=== PATIENT | female | born 1985 | race Caucasian/White ===

== ENCOUNTER → 2017-01-18 | Outpatient (CLI) | payer BC ==
[2015-02-24 14:14] VITALS: BP 131/79
[~2017-01-18] MED LIST: CIPR500T94 PO; OXYC-323 PO; PROM25SU32 RC
--- NOTE | 2017-01-18 09:17 | RAD ---
DATE: January 18, 2017 EXAM: DIGITAL DIAGNOSTIC BILATERAL, BREAST RIGHT, RIGHT BREAST SONOGRAPHY HISTORY: Right breast lump discovered by the patient's physician. COMPARISON: July 14, 2014 This study was interpreted with the benefit of Computerized Aided Detection (CAD). BILATERAL DIAGNOSTIC MAMMOGRAPHIC FINDINGS: The breast parenchyma is heterogeneously dense. There are no dominant suspicious masses, suspicious microcalcifications or evidence of architectural distortion. There is asymmetric dense breast parenchyma within the upper-outer quadrant of the right breast which corresponds to the area of the palpable abnormality as indicated by the skin marker. This is an unchanged chronic finding. Small intramammary lymph node within the posterior central aspect of the right breast in MLO projection is stable. RIGHT BREAST SONOGRAPHY: High-resolution sonography of the upper-outer quadrant of the right breast from the 9:00 to 12:00 position was performed in the area of clinical concern. No focal sonographic abnormality is seen. IMPRESSION: Stable mammogram. No new mammographic abnormality of the right breast is seen to correspond to the palpable abnormality which appears to represent stable chronic dense asymmetric nodular breast parenchyma. No focal sonographic abnormality is seen. This is a benign finding. Therefore, with regard to any palpable abnormality, follow-up should be clinical. There are no mammographic indicators for malignancy. BI-RADS CATEGORY: 2 BENIGN FINDING RECOMMENDED FOLLOW-UP: 12M 12 MONTH FOLLOW-UP PQRS compliance statement: Patient information was entered into a reminder system with a target due date January 19, 2018 for the next mammogram. Mammography is a sensitive method for finding small breast cancers, but it does not detect them all and is not a substitute for careful clinical examination. A negative mammogram does not negate a clinically suspicious finding and should not result in delay in biopsying a clinically suspicious abnormality. "Our facility is accredited by the [employer] Mammography [employer]." The patient's breast density may affect the ability of mammography to detect breast cancer. There are 4 categories of breast density, A, B, C and D. Breast density A means that most of the breast tissue is replaced with adipose tissue and therefore is not dense. Breast density B means that the breast tissue is mildly dense and scattered. Breast density C means that the breast tissue . Breast density D means that the breast tissue is very dense. Breast densities especially C and D may decrease the sensitivity of mammography to detect breast cancer. Therefore, the patient may benefit from 3-D breast mammography (3D breast tomography) as a part of their screening mammogram. Insurance may or may not pay for this additional imaging. The patient's breast density based on today's mammogram is category C.
== END | disposition home or self-care (01) ==
LOC: US 07:38
PROVIDERS: ATTEND Obstetrics & Gynecology
DX: N63.10 Unspecified lump in the right breast, unspecified quadrant (principal); F17.200 Nicotine dependence, unspecified, uncomplicated
CPT/HCPCS: 76641; G0204; 77066

== ENCOUNTER → 2019-06-18 | Outpatient (CLI) | payer BC ==
[2015-02-24 14:14] VITALS: BP 131/79
[~2019-06-18] MED LIST changes: -OXYC-323 PO; +OXYC1TAB15 PO
[2019-06-18 11:18] LABS: BASO % 1 % (0-3); EOS # 0.1 x10^3/uL (0.0-0.7); EOS % 2 % (0-3); HEMATOCRIT 43.6 % (36.0-47.0); HEMOGLOBIN 14.8 g/dL (12.0-15.5); LYMPH # 1.4 x10^3/uL (1.0-4.8); LYMPH % 41 % (24-48); MEAN CORPUSCULAR HEMOGLOBIN 29 pg (25-35); MEAN CORPUSCULAR HGB CONC 34 g/dL (31-37); MEAN CORPUSCULAR VOLUME 85 fL (79-100); MONO # 0.2 x10^3/uL (0.0-1.1); MONO % 7 % (0-9); NEUT # 1.7 x10^3uL (1.8-7.7); NEUT % 50 % (31-73); PLATELET COUNT 129 x10^3/uL (140-400); RED BLOOD COUNT 5.12 x10^6/uL (3.50-5.40); RED CELL DISTRIBUTION WIDTH 14.5 % (11.5-14.5); WHITE BLOOD COUNT 3.4 x10^3/uL (4.0-11.0)
[2019-06-18 11:32] LABS: ALBUMIN 3.2 g/dL (3.4-5.0); ALBUMIN/GLOBULIN RATIO 0.8 (1.0-1.7); CALCIUM 8.5 mg/dL (8.5-10.1); CREATININE 1.1 mg/dL (0.6-1.0); GFR 56.9; POTASSIUM 3.7 mmol/L (3.5-5.1); TOTAL BILIRUBIN 0.2 mg/dL (0.2-1.0); TOTAL PROTEIN 7.2 g/dL (6.4-8.2)
[2019-06-18 11:56] LABS: BILIRUBIN,URINE NEG (NEG); CLARITY,URINE CLOUDY; COLOR,URINE YELLOW; GLUCOSE,URINE 500 mg/dL (NEG)
[2019-06-18 11:57] LABS: BACTERIA,URINE MANY /HPF (0-FEW); NITRITE,URINE POS (NEG); SQUAMOUS EPITHELIAL CELL,UR MOD /LPF; UROBILINOGEN,URINE 0.2 mg/dL (0.2 mg/dL); WBC,URINE 20-40 /HPF (0-4)
[2019-06-18 14:07] LABS: FREE T4 1.03 ng/dL (0.76-1.46); THYROID STIM HORMONE (TSH) 1.845 uIU/mL (0.358-3.740)
[2019-06-19 01:06] LABS: HEMOGLOBIN A1C 7.9 % (4.8-5.6)
== END | disposition home or self-care (01) ==
LOC: LAB 10:16
PROVIDERS: ATTEND Physician Assistant
DX: Z00.00 Encounter for general adult medical examination without abnormal findings (principal); I10 Essential (primary) hypertension; E11.9 Type 2 diabetes mellitus without complications
CPT/HCPCS: 36415; 80053; 80061; 81001; 82043; 83036; 84439; 84443; 85025; 87086